=== PATIENT | male | born 1985 | race Caucasian/White ===

== ENCOUNTER 2016-08-15 23:59 | Emergency (ER) | payer OTHER ==
[~2016-08-15 23:59] MED LIST: ALAVERT10 MG PO; KEFLEX PO; NO MEDICATIONS; PEN-VEE K PO; VOLTAREN50 MG PO
[2016-08-16 00:02] LABS: BASOPHIL# 0.1 X10e3 (0-0.3); BASOPHIL% 1.1 % (0-2.5); EOSINOPHIL# 0.1 X10e3 (0-0.7); EOSINOPHIL% 1.8 % (0.0-7.0); HEMATOCRIT 45.4 % (38.0-50.0); HEMOGLOBIN 15.7 gm/dL (13.0-16.0); LYMPHOCYTE# 2.8 X10e3 (1.0-3.5); LYMPHOCYTE% 36.7 % (17.0-45.0); MEAN CELL VOLUME 87.6 FL (83-96); MEAN CORPUSCULAR HEMOGLOBIN 30.3 PG (28-34); MEAN CORPUSCULAR HGB CONC 34.6 g/dL (30-36); MEAN PLATELET VOLUME 9.6 FL (6.5-11.5); MONOCYTE# 0.5 X10e3 (0-1.0); MONOCYTE% 6.8 % (3.0-12.0); NEUTROPHIL# 4.1 X10e3 (1.5-7.1); NEUTROPHIL% 53.6 % (40-75); PLATELET COUNT 172 X10e3 (140-420); RED BLOOD COUNT 5.18 X10e (3.90-5.60); RED CELL DISTRIBUTION WIDTH 12.5 % (11.0-15.5); WHITE BLOOD COUNT 7.7 X10e3 (4.0-10.5)
[2016-08-16 00:03] LABS: DIFF IND NO
[2016-08-16 00:31] LABS: ALBUMIN SERUM 4.3 g/dL (3.5-5.0); ALKALINE PHOSPHATASE 82 U/L (32-92); ALT (SGPT) 105 U/L (10-40); AMYLASE 17 U/L (0-46); AST (SGOT) 42 U/L (10-42); BILIRUBIN, DIRECT 0.1 mg/dL (0.0-0.2); BILIRUBIN,INDIRECT 0.8 mg/dL (0.0-0.9); BILIRUBIN,TOTAL 0.9 mg/dL (0.2-2.0); BLOOD UREA NITROGEN 16 mg/dL (9-23); BUN/CREATININE RATIO 22.85; CARBON DIOXIDE 26 mmol/L (22-31); CHLORIDE 102 mmol/L (100-111); CREATININE SERUM 0.7 mg/dL (0.6-1.4); GLOM FILT RATE Estimated ABOVE60 mL/min (>60); GLUCOSE FASTING 83 mg/dL (70-110); LIPASE 21 U/L (22-51); POTASSIUM 4.1 mmol/L (3.5-5.1); PROTEIN TOTAL SERUM 7.1 g/dL (6.0-8.3); SODIUM 139 mmol/L (135-145)
== END 2016-08-16 02:45 | disposition left against medical advice (07) ==
LOC: CED 23:59
PROVIDERS: Emergency Medicine
DX: Z53.21 Procedure and treatment not carried out due to patient leaving prior to being seen by health care provider (principal)
CPT/HCPCS: 80048; 80076; 82150; 83690; 85025

== ENCOUNTER 2016-08-25 14:26 | Emergency (ER) | payer OTHER ==
--- NOTE | ~2016-08-25 | EKG ---
PATIENT: WILLIAM VILLALBA UNIT #: [id number] Ventricular Rate: 62 BPM Atrial Rate: 62 BPM P-R Interval: 168 ms QRS Duration: 94 ms Q-T Interval: 382 ms QTC Calculation(Bezet): 387 ms P [place]: 9 degrees Calculated R [place]: 6 degrees Calculated T [place]: 12 degrees Diagnosis Line: Normal sinus rhythm Diagnosis Line: Minimal voltage criteria for LVH, may be normal Diagnosis Line: variant Diagnosis Line: Otherwise normal ECG Diagnosis Line: When compared with ECG of 03-NOV-2014 20:17, Diagnosis Line: No significant change was found Diagnosis Line: Confirmed by JULIO REYES MD ([id number]) on 08/26/2016 Diagnosis Line: 12:05:36 PM INTERPRETING MD: ERIC PEDROZA
--- NOTE | ~2016-08-25 | CR63 ---
[facility] A Service of [facility] RADIOLOGY TEXT RESULTS PATIENT: WILLIAM VILLALBA LOCATION: [facility] : 87 UNIT #: [id number] AGE: [address]: Freedom Patel MD SEX: M ORDER DR: [id number] [facility] [address] [place], [place] [address] [id number] E MR#: [id number] Acc #: [id number] NAME: WILLIAM VILLALBA : 1985 SEX: M STUDY DATE/TIME: 08/25/2016 13:54 UNIT: [facility] ROOM: STUDY DESCRIPTION: CR Chest 2 View Attending Physician: Freedom Patel M.D. Ordering Physician: Freedom Patel M.D. Primary Care Physician: No Primary Care Physician MEDICAL IMAGING REPORT This report is preliminary unless electronic signature is present EXAM Chest 2 views 08/25/2016 1354 hours HISTORY 31-year-old with complaint of chest pain and shortness of air for 1 year. COMPARISON 08/20/2014 FINDINGS Upright PA and lateral views of the chest are performed. The cardiac, mediastinal and hilar contours are normal. There are benign calcified granulomatous changes which are stable. The lungs are clear and there are no effusions. IMPRESSION Stable benign calcified granulomatous changes. No acute cardiopulmonary findings. Dictated by... Iza Buck M.D. THIS IS AN ELECTRONICALLY VERIFIED REPORT Iaz Buck M.D. at 08/26/2016 9:18 AM MITUL/livia TD: 08/25/2016 18:56 JOB #: [id number] MEDICAL IMAGING REPORT COPY
--- NOTE | ~2016-08-25 | EKG ---
PATIENT: WILLIAM VILLALBA UNIT #: [id number] Ventricular Rate: 59 BPM Atrial Rate: 59 BPM P-R Interval: 172 ms QRS Duration: 94 ms Q-T Interval: 402 ms QTC Calculation(Bezet): 397 ms P [place]: 7 degrees Calculated R [place]: -2 degrees Calculated T [place]: 10 degrees Diagnosis Line: Sinus bradycardia Diagnosis Line: Minimal voltage criteria for LVH, may be normal Diagnosis Line: variant Diagnosis Line: Otherwise normal ECG Diagnosis Line: When compared with ECG of 25-AUG-2016 13:28, Diagnosis Line: (unconfirmed) Diagnosis Line: No significant change was found Diagnosis Line: Confirmed by JULIO REYES MD ([id number]) on 08/26/2016 Diagnosis Line: 12:05:53 PM INTERPRETING MD: ERIC PDEROZA
[2016-08-25 13:52] LABS: BASOPHIL% 0.5 % (0-2.5); EOSINOPHIL# 0.1 X10e3 (0-0.7); EOSINOPHIL% 1.1 % (0.0-7.0); HEMOGLOBIN 16.3 gm/dL (13.0-16.0); LYMPHOCYTE# 2.1 X10e3 (1.0-3.5); LYMPHOCYTE% 39.3 % (17.0-45.0); MEAN CELL VOLUME 86.6 FL (83-96); MEAN CORPUSCULAR HEMOGLOBIN 29.4 PG (28-34); MEAN PLATELET VOLUME 9.7 FL (6.5-11.5); MONOCYTE# 0.5 X10e3 (0-1.0); MONOCYTE% 9.1 % (3.0-12.0); NEUTROPHIL# 2.7 X10e3 (1.5-7.1); PLATELET COUNT 165 X10e3 (140-420); RED BLOOD COUNT 5.54 X10e (3.90-5.60); RED CELL DISTRIBUTION WIDTH 12.5 % (11.0-15.5); WHITE BLOOD COUNT 5.4 X10e3 (4.0-10.5)
[2016-08-25 13:53] LABS: DIFF IND NO
[2016-08-25 13:56] LABS: POC - CKMB 2.2 ng/mL (0.0-7.9); POC - TROPONIN <0.05 ng/mL (<=0.05)
[2016-08-25 14:17] LABS: ALBUMIN SERUM 4.5 g/dL (3.5-5.0); ALKALINE PHOSPHATASE 76 U/L (32-92); ALT (SGPT) 93 U/L (10-40); AST (SGOT) 42 U/L (10-42); BILIRUBIN, DIRECT 0.2 mg/dL (0.0-0.2); BILIRUBIN,INDIRECT 1.8 mg/dL (0.0-0.9); BLOOD UREA NITROGEN 18 mg/dL (9-23); CALCIUM SERUM 9.3 mg/dL (8.4-10.2); CARBON DIOXIDE 24 mmol/L (22-31); CHLORIDE 103 mmol/L (100-111); CREATININE SERUM 0.9 mg/dL (0.6-1.4); GLOM FILT RATE Estimated ABOVE60 mL/min (>60); GLUCOSE FASTING 92 mg/dL (70-110); PROTEIN TOTAL SERUM 7.8 g/dL (6.0-8.3); SODIUM 137 mmol/L (135-145)
[2016-08-25 15:52] LABS: POC - CKMB 1.8 ng/mL (0.0-7.9); POC - TROPONIN <0.05 ng/mL (<=0.05)
== END 2016-08-25 16:29 | disposition home or self-care (01) ==
LOC: CED 14:26
PROVIDERS: Emergency Medicine
DX: R07.89 Other chest pain (principal); F11.10 Opioid abuse, uncomplicated; F41.9 Anxiety disorder, unspecified; F17.210 Nicotine dependence, cigarettes, uncomplicated
CPT/HCPCS: 36415; 71020; 80048; 80076; 82553; 83880; 84484; 85025; 93005; 99284

== ENCOUNTER 2016-10-06 23:35 | Emergency (ER) | payer OTHER ==
--- NOTE | ~2016-10-06 | CR72 ---
[facility] A Service of [facility] & [facility] RADIOLOGY TEXT RESULTS PATIENT: WILLIAM VILLALBA LOCATION: [facility] : 89 UNIT #: [id number] AGE: [address]: Freedom Patel MD SEX: M ORDER DR: [id number] [facility] [address] [place], [place] [address] [id number] E MR#: [id number] Acc #: [id number] NAME: WILLIAM VILLALBA : 1985 SEX: M STUDY DATE/TIME: 10/06/2016 23:08 UNIT: [facility] ROOM: STUDY DESCRIPTION: CR Chest Single View Portable Attending Physician: Freedom Patel M.D. Ordering Physician: Ed Doc Moshe Avila Primary Care Physician: Primary Care Physician No MEDICAL IMAGING REPORT This report is preliminary unless electronic signature is present EXAM Chest x-ray 10/06/2016. HISTORY 31-year-old male in the ED complaining of chest pain, shortness of air and cough. Symptoms began earlier today. TECHNIQUE AP portable chest x-ray. FINDINGS Heart size and pulmonary vascularity are normal. The lungs are expanded and clear. No visible pulmonary infiltrate or pleural effusion. Benign calcified granulomas right mid lung and right hilum. No change since 08/25/2016. IMPRESSION No active disease. No change since 08/25/2016. Dictated by... Clifton Root M.D. THIS IS AN ELECTRONICALLY VERIFIED REPORT Clifton Root M.D. at 10/07/2016 6:01 AM ANNETTE/rhina TD: 10/06/2016 23:44 JOB #: [id number] MEDICAL IMAGING REPORT Page 1 of 1 COPY
--- NOTE | ~2016-10-06 | EKG ---
PATIENT: WILLIAM VILLALBA UNIT #: [id number] Ventricular Rate: 76 BPM Atrial Rate: 76 BPM P-R Interval: 170 ms QRS Duration: 104 ms Q-T Interval: 368 ms QTC Calculation(Bezet): 414 ms P [place]: 39 degrees Calculated R [place]: 28 degrees Calculated T [place]: 23 degrees Diagnosis Line: Normal sinus rhythm Diagnosis Line: Normal ECG Diagnosis Line: No previous ECGs available Diagnosis Line: Confirmed by ROSENDO OBREGON MD ([id number]) on Diagnosis Line: 10/07/2016 11:14:38 PM INTERPRETING MD: KARTHIK
[2016-10-06 23:04] LABS: BASOPHIL% 0.6 % (0-2.5); EOSINOPHIL# 0.1 X10e3 (0-0.7); EOSINOPHIL% 0.9 % (0.0-7.0); HEMATOCRIT 45.2 % (38.0-50.0); HEMOGLOBIN 15.2 gm/dL (13.0-16.0); LYMPHOCYTE# 2.9 X10e3 (1.0-3.5); LYMPHOCYTE% 36.1 % (17.0-45.0); MEAN CELL VOLUME 86.9 FL (83-96); MEAN CORPUSCULAR HEMOGLOBIN 29.2 PG (28-34); MEAN CORPUSCULAR HGB CONC 33.6 g/dL (30-36); MEAN PLATELET VOLUME 9.5 FL (6.5-11.5); MONOCYTE# 0.6 X10e3 (0-1.0); NEUTROPHIL# 4.3 X10e3 (1.5-7.1); NEUTROPHIL% 54.4 % (40-75); PLATELET COUNT 197 X10e3 (140-420); RED CELL DISTRIBUTION WIDTH 12.4 % (11.0-15.5)
[2016-10-06 23:05] LABS: DIFF IND NO
[2016-10-06 23:06] LABS: POC - CKMB <1.0 ng/mL (0.0-7.9); POC - TROPONIN <0.05 ng/mL (<=0.05)
[2016-10-06 23:24] LABS: BILIRUBIN, DIRECT 0.1 mg/dL (0.0-0.2); BILIRUBIN,INDIRECT 0.8 mg/dL (0.0-0.9); BILIRUBIN,TOTAL 0.9 mg/dL (0.2-2.0); CALCIUM SERUM 8.9 mg/dL (8.4-10.2); GLOM FILT RATE Estimated 101.3 mL/min (>60); POTASSIUM 3.7 mmol/L (3.5-5.1); PROTEIN TOTAL SERUM 6.9 g/dL (6.0-8.3)
[2016-10-06 23:25] LABS: PARTIAL THROMBOPLASTIN TIME 23.1 SECONDS (23.5-31.3); PROTHROMBIN TIME (PATIENT) 10.7 SECONDS (9.6-11.5)
[2016-10-06 23:40] LABS: AMPHETAMINE NEG (NEG); BARBITURATES NEG (NEG); BENZODIAZEPINES NEG (NEG); COCAINE NEG (NEG); MARIJUANA POS (NEG); OPIATES POS (NEG); TRICYCLIC ANTIDEPRESSANTS NEG (NEG); U METHADONE NEG (NEG)
== END 2016-10-07 00:40 | disposition left against medical advice (07) ==
LOC: CFTX 23:35
PROVIDERS: Emergency Medicine
DX: R07.89 Other chest pain (principal); F17.200 Nicotine dependence, unspecified, uncomplicated; Z88.5 Allergy status to narcotic agent
CPT/HCPCS: 71010; 80048; 80076; 80307; 82553; 84484; 85025; 85610; 85730; 93005; 99284

== ENCOUNTER 2016-10-13 18:30 | Emergency (ER) | payer OTHER | END 2016-10-13 21:05 | disposition home or self-care (01) | LOC: CED 18:30 | DX: S61.210A Laceration without foreign body of right index finger without damage to nail, initial encounter (principal); F17.210 Nicotine dependence, cigarettes, uncomplicated; Z88.5 Allergy status to narcotic agent; X58.XXXA Exposure to other specified factors, initial encounter; Y92.69 Other specified industrial and construction area as the place of occurrence of the external cause | CPT/HCPCS: 99283 ==

== ENCOUNTER 2016-11-16 15:03 | Emergency (ER) | payer OTHER ==
--- NOTE | ~2016-11-16 | CT2 ---
[facility] A Service of [facility] RADIOLOGY TEXT RESULTS PATIENT: WILLIAM VILLALBA LOCATION: [facility] : 87 UNIT #: [id number] AGE: [address]: Joan Amaral MD SEX: M ORDER DR: [id number] [place] [facility] [place], [place] [address] [id number] E MR#: [id number] Acc #: [id number] NAME: WILLIAM VILLALBA : 1985 SEX: M STUDY DATE/TIME: 11/16/2016 18:03 UNIT: [facility] ROOM: STUDY DESCRIPTION: CT Abd and Pelv W Cont Attending Physician: Joan Amaral M.D. Ordering Physician: Jovanny Dominique D.O. Primary Care Physician: Primary Care Physician No MEDICAL IMAGING REPORT This report is preliminary unless electronic signature is present EXAM CT abdomen and pelvis with IV contrast HISTORY Abdomen pain for [address] abdomen and pelvis was performed with IV contrast. This CT exam was performed with one or more of the following radiation dose reduction techniques: Automatic exposure control, adjustment of mA and/or kV according to patient size, and iterative reconstruction. CT ABDOMEN: Diffuse fatty infiltration of the liver. No hepatic mass or biliary dilatation. Gallbladder is contracted. Splenomegaly measures 19.4 cm in AP dimension and is slightly larger than on CT 08/04/2011. Pancreas, kidneys, and adrenal glands are normal. No bowel dilatation. Normal caliber abdominal aorta. CT PELVIS: Mild sigmoid diverticulosis. No diverticulitis. No pelvic free fluid. Urinary bladder is normal. IMPRESSION 1. No acute findings in the abdomen or pelvis. 2. Diffuse fatty infiltration of the liver. 3. Splenomegaly measures 19.4 cm in AP dimension and has increased in size compared to CT 08/04/2011, when it measured 16.3 cm. 4. No urinary obstruction or bowel obstruction. Dictated by... Jhon Grewal M.D. THIS IS AN ELECTRONICALLY VERIFIED REPORT [facility] A Service of [facility] RADIOLOGY TEXT RESULTS PATIENT: WILLIAM VILLALBA LOCATION: [facility] : 87 UNIT #: [id number] AGE: [address]: Joan Amaral MD SEX: M ORDER DR: Jhon Grewal M.D. at 11/17/2016 3:17 PM DFL/psc TD: 11/16/2016 22:45 JOB #: [id number] MEDICAL IMAGING REPORT Page 1 of 1 COPY
--- NOTE | ~2016-11-16 | CR63 ---
[facility] A Service of [facility] RADIOLOGY TEXT RESULTS PATIENT: WILLIAM VILLALBA LOCATION: [facility] : 87 UNIT #: [id number] AGE: [address]: Joan Amaral MD SEX: M ORDER DR: [id number] [facility] [address] [place], [place] [address] [id number] E MR#: [id number] Acc #: [id number] NAME: WILLIAM VILLALBA : 1985 SEX: M STUDY DATE/TIME: 11/16/2016 17:08 UNIT: [facility] ROOM: STUDY DESCRIPTION: CR Chest 2 View Attending Physician: Joan Amaral M.D. Ordering Physician: Jovanny Dominique D.O. Primary Care Physician: Primary Care Physician No MEDICAL IMAGING REPORT This report is preliminary unless electronic signature is present EXAM PA and lateral chest HISTORY Chronic chest pain. No injury. FINDINGS Two views of the chest demonstrate the cardiac size and pulmonary vascularity are normal. Small, calcified right hilar nodes and calcified granulomas in the right mid lung. No airspace infiltrates or effusions. IMPRESSION No acute findings and no active disease. Dictated by... Jhon Grewal M.D. THIS IS AN ELECTRONICALLY VERIFIED REPORT Jhon Grewal M.D. at 11/16/2016 10:40 PM DFL/rhina TD: 11/16/2016 21:58 JOB #: [id number] MEDICAL IMAGING REPORT Page 1 of 1 COPY
--- NOTE | ~2016-11-16 | CT16 ---
[facility] A Service of [facility] RADIOLOGY TEXT RESULTS PATIENT: WILILAM VILLALBA LOCATION: [facility] : 89 UNIT #: [id number] AGE: [address]: Joan Amaral MD SEX: M ORDER DR: [id number] [address] [address] [id number] E MR#: [id number] Acc #: [id number] NAME: WILLIAM VILLALBA : 1985 SEX: M STUDY DATE/TIME: 11/16/2016 18:50 UNIT: [facility] ROOM: STUDY DESCRIPTION: CT Angio Chest for PE Attending Physician: Joan Amaral M.D. Ordering Physician: Jovanny Dominique D.O. Primary Care Physician: Primary Care Physician No MEDICAL IMAGING REPORT This report is preliminary unless electronic signature is present EXAM CTA chest PE protocol INDICATION Chest pain, shortness of air. Elevated D-dimer level over the past 5 days. PROCEDURE Contrast-enhanced CTA of the chest attention on opacification of pulmonary arteries. Coronal 3-D MIP sagittal reformatted images reconstructed and submitted. COMPARISON None. This CT exam was performed with one or more of the following radiation dose reduction techniques: automatic exposure control, adjustment of mA and/or kV according to patient size, and iterative reconstruction. FINDINGS No evidence for pulmonary embolus. No evidence for acute aortic injury. No adenopathy. Hepatosplenomegaly. Hepatic steatosis. Lungs are clear. No pleural fluid or pneumothorax. No aggressive-appearing bone lesion. IMPRESSION 1. No acute findings. No evidence for pulmonary embolus. 2. Hepatosplenomegaly with steatosis in the liver. Dictated by... Chris Upton M.D. [facility] A Service of [facility] RADIOLOGY TEXT RESULTS PATIENT: WILLIAM VILLALBA LOCATION: [facility] : 89 UNIT #: [id number] AGE: [address]: Joan Amaral MD SEX: M ORDER DR: THIS IS AN ELECTRONICALLY VERIFIED REPORT Chris Upton M.D. at 11/17/2016 2:25 PM TREMAINE/carlos TD: 11/16/2016 22:49 JOB #: [id number] MEDICAL IMAGING REPORT Page 1 of 1 COPY
[2016-11-16 15:50] LABS: URINE SOURCE CLEAN CATCH
[2016-11-16 15:53] LABS: BASOPHIL% 0.7 % (0-2.5); EOSINOPHIL# 0.1 X10e3 (0-0.7); EOSINOPHIL% 1.6 % (0.0-7.0); HEMATOCRIT 48.5 % (38.0-50.0); HEMOGLOBIN 16.6 gm/dL (13.0-16.0); LYMPHOCYTE# 1.2 X10e3 (1.0-3.5); LYMPHOCYTE% 23.7 % (17.0-45.0); MEAN CORPUSCULAR HGB CONC 34.2 g/dL (30-36); MEAN PLATELET VOLUME 10.3 FL (6.5-11.5); MONOCYTE# 0.3 X10e3 (0-1.0); MONOCYTE% 6.2 % (3.0-12.0); NEUTROPHIL# 3.3 X10e3 (1.5-7.1); NEUTROPHIL% 67.8 % (40-75); PLATELET COUNT 114 X10e3 (140-420); RED BLOOD COUNT 5.71 X10e (3.90-5.60); RED CELL DISTRIBUTION WIDTH 12.4 % (11.0-15.5); WHITE BLOOD COUNT 4.9 X10e3 (4.0-10.5)
[2016-11-16 15:54] LABS: DIFF IND NO
[2016-11-16 15:54] LABS: URINE APPEARANCE CLEAR; URINE BLOOD NEG (NEG); URINE COLOR DK YELLOW; URINE GLUCOSE NEG (NEG); URINE KETONE NEG (NEG); URINE LEUKOCYTE ESTERASE TRACE (NEG); URINE NITRATE POS (NEG); URINE PH 5.5 (5-8); URINE PROTEIN 2+ (NEG); URINE SPECIFIC GRAVITY 1.033 (1.003-1.035)
[2016-11-16 15:57] LABS: URBCS1 AUWI 0-2 /[HPF] (0-2); URINE BACTERIA AUWI NEG (NEGATIVE); URINE SQUAMOUS EPITHELIAL CELL NONE SEEN /[HPF]; UWBCS1 AUWI 0-2 (0-5)
[2016-11-16 15:58] LABS: CULTURE INDICATED? NO
[2016-11-16 16:00] LABS: URINE BILIRUBIN NEG (NEG)
[2016-11-16 16:34] LABS: ALBUMIN SERUM 3.7 g/dL (3.5-5.0); ALCOHOL BLOOD 7 mg/dL (0); ALKALINE PHOSPHATASE 135 U/L (32-92); ALT (SGPT) 2138 U/L (10-40); AST (SGOT) 1554 U/L (10-42); BILIRUBIN, DIRECT 1.6 mg/dL (0.0-0.2); BILIRUBIN,INDIRECT 2.3 mg/dL (0.0-0.9); BILIRUBIN,TOTAL 3.9 mg/dL (0.2-2.0); BLOOD UREA NITROGEN 13 mg/dL (9-23); BUN/CREATININE RATIO 16.25; CALCIUM SERUM 8.9 mg/dL (8.4-10.2); CARBON DIOXIDE 22 mmol/L (22-31); CHLORIDE 101 mmol/L (100-111); CREATININE SERUM 0.8 mg/dL (0.6-1.4); GLOM FILT RATE Estimated 120.8 mL/min (>60); GLUCOSE FASTING 136 mg/dL (70-110); POTASSIUM 3.2 mmol/L (3.5-5.1); PROTEIN TOTAL SERUM 7.4 g/dL (6.0-8.3); SALICYLATE <4.0 mg/dL; SODIUM 133 mmol/L (135-145)
[2016-11-16 16:53] LABS: AMPHETAMINE NEG (NEG); BARBITURATES NEG (NEG); BENZODIAZEPINES NEG (NEG); COCAINE NEG (NEG); MARIJUANA POS (NEG); OPIATES POS (NEG); TRICYCLIC ANTIDEPRESSANTS NEG (NEG); U METHADONE NEG (NEG)
[2016-11-16 18:36] LABS: POC - CKMB <1.0 ng/mL (0.0-7.9); POC - TROPONIN <0.05 ng/mL (<=0.05)
[2016-11-16 18:45] LABS: INR 1.2; PARTIAL THROMBOPLASTIN TIME 25.5 SECONDS (23.5-31.3); PROTHROMBIN TIME (PATIENT) 12.9 SECONDS (9.6-11.5)
[2016-11-16 20:33] LABS: POC - CKMB <1.0 ng/mL (0.0-7.9); POC - TROPONIN <0.05 ng/mL (<=0.05)
[2016-11-20 08:32] LABS: CHLAMYDIA TRACH Not Detected (Not Detected); N GONOR Not Detected (Not Detected)
== END 2016-11-16 23:45 | disposition home or self-care (01) ==
LOC: CED 15:03
PROVIDERS: Emergency Medicine; Student in an Organized Health Care Education/Training Program
DX: F11.10 Opioid abuse, uncomplicated (principal); K75.9 Inflammatory liver disease, unspecified; Z88.5 Allergy status to narcotic agent
CPT/HCPCS: 36415; 71020; 71275; 74177; 80048; 80076; 80307; 81003; 82553; 84484; 85025; 85379; 85610; 85730; 86308; 87491; 87591; 99284; G0480; Q9967

== ENCOUNTER 2017-01-17 19:26 | Emergency (ER) | payer OTHER ==
[~2017-01-17] VITALS: Ht 182.9 cm; Wt 99.8 kg
--- NOTE | ~2017-01-17 | CR72 ---
[facility] A Service of [facility] RADIOLOGY TEXT RESULTS PATIENT: WILLIAM VILLALBA LOCATION: [facility] : 87 UNIT #: [id number] AGE: [address]: Jovanny Dominique DO SEX: M ORDER DR: [id number] [facility] [address] [place], [place] [address] [id number] E MR#: [id number] Acc #: [id number] NAME: WILLIAM VILLALBA : 1985 SEX: M STUDY DATE/TIME: UNIT: [facility] ROOM: STUDY DESCRIPTION: CR Chest Single View Portable Attending Physician: Jovanny Dominique D.O. Ordering Physician: Jovanny Dominique D.O. Primary Care Physician: No Primary Care Physician MEDICAL IMAGING REPORT This report is preliminary unless electronic signature is present EXAM Chest portable, 01/17/2017 20:37 hours. HISTORY 31-year-old with shortness of air with activity, overdose, 01/17/2017. COMPARISON 11/16/2016. FINDINGS Portable upright chest demonstrates normal cardiac, mediastinal and hilar contours. There are stable calcified granulomatous changes. The lungs are clear and there are no effusions. IMPRESSION No acute cardiopulmonary findings. No change from 11/16/2016. Dictated by... zIa Buck M.D. THIS IS AN ELECTRONICALLY VERIFIED REPORT Iza Buck M.D. at 01/18/2017 2:30 PM SMM/gz TD: 01/18/2017 09:12 JOB #: [id number] MEDICAL IMAGING REPORT Page 1 of 1 COPY
== END 2017-01-17 23:24 | disposition home or self-care (01) ==
LOC: CED 19:26
DX: T40.1X1A Poisoning by heroin, accidental (unintentional), initial encounter (principal); F41.9 Anxiety disorder, unspecified; Z88.5 Allergy status to narcotic agent; Z86.19 Personal history of other infectious and parasitic diseases
CPT/HCPCS: 71010; 96372; 96374; 99284; J2405